=== PATIENT | male | born 1950 | race Caucasian/White ===

== ENCOUNTER → 2016-08-21 | Outpatient (CLI) | payer MEDICARE, OTHER ==
[~2016-08-21] MED LIST: AMLODIPINE-BEN1 EAC4 PO; ASA CHILDREN'S81 MG PO; BACITRACIN15 G1 TP; BETADINE30 ML TP; COLACE-DPS100 MG PO; COREG3.125 MG PO; ECOTRIN81 MG PO; LOTREL 5-20 MG1 EACH PO; MEDROL DOSEP4 MG/TAB PO; MOBIC15 MG PO; PERCOCET 10 DPS1 TAB PO; PERCOCET 5 DPS1 TAB PO; TYLENOL DPS325 MG PO; VALIUM-DPS5 MG PO; ZOCOR DPS20 MG PO
== END | disposition home or self-care (01) ==
LOC: PTH.S 07:43
DX: Z01.818 Encounter for other preprocedural examination (principal)

== ENCOUNTER 2016-08-26 07:48 | Inpatient (IN) | payer MEDICARE, OTHER ==
[~2016-08-26] VITALS: Ht 185.4 cm; Wt 93.4 kg
--- NOTE | ~2016-08-26 | DS ---
ADMIT: 08/28/2016 RM/LOC: 522 [facility] MR#: [id number] [facility]#: [id number] 2620 [facility] [address] [place] [id number] LEAH GARCIA [address] [place] [address] Discharge Summary SEX: M AGE: 66 : 1950 ADMISSION DATE: 08/28/2016 DISCHARGE DATE: 08/30/2016 SERVICE: Neurosurgery. REASON FOR ADMISSION: 1. Lumbar disc herniation with radiculopathy. 2. Numbness. 3. Lumbar stenosis with neurogenic claudication. PROCEDURES: Lumbar 2 through 5 laminectomy. HOSPITAL COURSE: Mr. Garcia tolerated his procedure well. Postoperatively, he was taken to the med/surg floor for monitoring and care. Postop day #1 he was awake and alert. He was afebrile, his vital signs were stable. He was moving all extremities x4 with 5/5 strength. His dressing was clean, dry, and intact. His ON-Q was patent. His SABINE drain was patent with serosanguineous drainage. He worked with physical therapy and occupational therapy and tolerated this quite well. Postop day #2, he was awake and alert. He was afebrile, his vital signs were stable. He was moving all extremities x4. He was complaining of increased back pain. His incision was clean, dry, and intact. His SABINE drain was patent with serosanguineous drainage and was discontinued without difficulty. His ON-Q was patent and was discontinued without difficulty as well. His Percocet was increased. He was ambulating, urinating, and defecating per his norm and was requesting discharge home. Later that morning he did complain of a little bit of headache that did improve a little bit when he was getting back. There was no cerebrospinal fluid leak during surgery and no dural damaged. Therefore, he was dismissed per his request. DISCHARGE CONDITION: Good. DISCHARGE MEDICATIONS: 1. Colace 100 mg p.o. b.i.d. 2. Bacitracin to his incision q.p.m. 3. Tylenol 650 mg q.4 hours p.r.n. 4. Valium 5-10 mg p.o. q.8 hours p.r.n. 5. Carvedilol 3.125 mg at bedtime. 6. Amlodipine benazepril 5/20 at bedtime. 7. Simvastatin 20 mg at bedtime. 8. Meloxicam 50 mg at bedtime. 9. An 81 mg aspirin at bedtime, may restart on 08/31/2016. 10.Percocet 10/325, 1-2 p.o. q.4 hours p.r.n. ADMIT: 08/28/2016 RM/LOC: 522 [facility] MR#: [id number] [address] [address] LEAH GARCIA [address] [place] [address] Discharge Summary SEX: M AGE: 66 : 1950 DISCHARGE INSTRUCTIONS: Per Dr. Agarwal, he can have a regular diet. He may shower, he should not take any tub baths, he should pat his incision dry. He should not lift anything greater than 15 pounds[address] He should not drive until he is seen in clinic. He will call with any questions or concerns including neurological worsening, signs or symptoms of infection, or any other issues. FOLLOWUP: He will follow up in clinic with Carmita in 2 weeks. DISPOSITION: He was discharged home. Total [id number] time for the discharge planning and care coordination was 30 minutes. Carmita Valero APRN / Willian Agarwal MD / nilda JOB #: [id number] CC: Willian Agarwal MD, Attending Physician Errol Portillo MD, Family Physician
--- NOTE | 2016-08-31 08:43 | OR ---
ADMIT: 08/28/2016 RM/LOC: 522 [facility] MR#: [id number] [address] [address] LEAH GARCIA [address] [place] [address] Operative/Delivery Room Report SEX: M AGE: 66 : 1950 SURGERY DATE: 08/28/2016 SURGEON: Willian Agarwal MD RADIO SURVEY WORKER: Ms. Carmita Valero APRN. PREOPERATIVE DIAGNOSES: Lumbar radiculopathy and neurogenic claudication with leg numbness from severe stenosis lumbar 2-3, 3-4, and 4-5. POSTOPERATIVE DIAGNOSES: Lumbar radiculopathy and neurogenic claudication with leg numbness from severe stenosis lumbar 2-3, 3-4, and 4-5. PROCEDURE: Wide lumbar laminectomy with medial facet undercutting as wide as necessary for decompression of thecal sac and lateral recesses lumbar 2-3, 3- 4, and 4-5 intraoperative use of fluoroscopy with physician interpretation of film. DESCRIPTION OF PROCEDURE: After gaining informed consent, the patient was taken to operative theater, placed under general endotracheal anesthesia in a supine position and turned prone on a Jean Carlos table. All pressure points purposely padded prior to performing the procedure. He was prepped and draped in sterile fashion. A time-out was utilized to ascertain the correct site and side of surgery as well as other pertinent patient historical information. Counts were obtained at the beginning and the end of the case with no change betwixt the two. Antibiotics were given within 1 hour of incision. Fluoroscope was brought into the field and lumbar 2 through 5 levels were delineated and markers were placed. The posterior skin was then incised in a longitudinal fashion. This was then taken down to the thoracodorsal fascia, which was sharply incised and subperiosteal dissection with Jung elevators were utilized over the spinous processes and lamina out over top of the facets taking caution not to interrupt the facet capsule. Once this was all prepared, self-retaining retractors were placed and then various Leksell rongeur and the high-speed drill were used to resect the spinous processes and lamina out towards the medial aspect of the facet undercutting where necessary resecting the severely overgrown ligamentum flavum, widely into the lateral recesses sounding into the neural foramen bilaterally lumbar 2-3, 3-4, and 4-5 with no sign of further compressive etiology and very widely decompressed thecal sac at the completion of the laminectomy and facet undercutting. Once this was completed, Pristine hemostasis was obtained. Attention was turned to closure. A SABINE drain was daylighted out. The thoracodorsal fascia was closed with simple interrupted 0 Vicryl. Simple inverted interrupted 2-0 Vicryl in hypodermic tissue with subcuticular 3-0 Stratafix on the skin with Steri- Strips over that. Stab incision was then fashioned in the paraspinous region this was then tunneled down tunneling catheters into the paraspinous ADMIT: 08/28/2016 RM/LOC: 522 [facility] MR#: [id number] [address] [place] [phone] [facility] [address] [address] Operative/Delivery Room Report SEX: M AGE: 66 : 1950 musculature with 5 mL of 0.5% Marcaine and then connected to ropivacaine ball. Sanjeev Marylu assisted with suction, retraction, and closure at the end of the case. COMPLICATIONS: None. ESTIMATED BLOOD LOSS: Charted. SPECIMEN: Posterior elements. DISPOSITION: Extubated and taken to postanesthesia care unit. Willian Agarwal MD/ penny PERRY: 08/28/2016 15:54:46 JOB #: [id number] CC: Willian Agarwal, Attending Physician Errol Portillo, Family Physician
[2016-08-31] MEDS ORDERED: ZOCOR DPS20 MG PO (16:45)
[2016-08-31] MEDS ORDERED: AMLODIPINE-BEN1 EAC4 PO (16:45)
[2016-08-31] MEDS ORDERED: COREG3.125 MG PO (16:45)
[2016-08-31] MEDS ORDERED: COLACE-DPS100 MG PO (16:46)
[2016-08-31] MEDS ORDERED: ECOTRIN81 MG PO (16:46)
[2016-08-31] MEDS ORDERED: MOBIC15 MG PO (16:46)
[2016-08-31] MEDS ORDERED: BETADINE30 ML TP (16:47)
[2016-08-31] MEDS ORDERED: BACITRACIN15 G1 TP (16:47)
[2016-08-31] MEDS ORDERED: VALIUM-DPS5 MG PO (16:47)
[2016-08-31] MEDS ORDERED: TYLENOL DPS325 MG PO (16:47)
[2016-08-31] MEDS ORDERED: PERCOCET 10 DPS1 TAB PO (16:47)
[2016-09-06] MEDS ORDERED: MEDROL DOSEP4 MG/TAB PO (08:31)
[2016-11-07] MEDS ORDERED: ASA CHILDREN'S81 MG PO (10:19)
[2016-11-07] MEDS ORDERED: COREG3.125 MG PO (10:20)
[2016-11-07] MEDS ORDERED: LOTREL 5-20 MG1 EACH PO (10:20)
[2016-11-07] MEDS ORDERED: ZOCOR DPS20 MG PO (10:20)
[2016-11-07] MEDS ORDERED: VALIUM-DPS5 MG PO (10:21)
[2016-11-07] MEDS ORDERED: MOBIC15 MG PO (10:21)
[2016-11-07] MEDS ORDERED: PERCOCET 5 DPS1 TAB PO (10:21)
== END 2016-08-30 15:07 | disposition home or self-care (01) | DRG 520 ==
LOC: WOR 08-28 10:41 → 5MS 08-28 16:05
PROVIDERS: ADMIT Neurological Surgery
DX: M51.16 Intervertebral disc disorders with radiculopathy, lumbar region (principal); I10 Essential (primary) hypertension; F17.210 Nicotine dependence, cigarettes, uncomplicated; I25.2 Old myocardial infarction; I25.10 Atherosclerotic heart disease of native coronary artery without angina pectoris; Z79.82 Long term (current) use of aspirin; Z82.49 Family history of ischemic heart disease and other diseases of the circulatory system; Z95.1 Presence of aortocoronary bypass graft

== ENCOUNTER 2016-09-03 15:54 | Observation (INO) | payer MEDICARE, OTHER ==
[~2016-09-03] VITALS: Ht 185.4 cm; Wt 88.2 kg
[~2016-09-03 15:54] MED LIST changes: -ASA CHILDREN'S81 MG PO; -LOTREL 5-20 MG1 EACH PO; -MEDROL DOSEP4 MG/TAB PO; -PERCOCET 5 DPS1 TAB PO
--- NOTE | 2016-09-04 10:16 | HP ---
ADMIT: 09/03/2016 RM/LOC: 519 [facility] MR#: [id number] [facility]#: [id number] [address] [place] [address] [place], [place] [address] LEAH GARCIA [address] [place] [address] Pre-OP History and Physical SEX: M AGE: 66 : 1950 DATE OF SERVICE: HISTORY: Mr. Garcia presents to the ER. I got in a call from his primary care doctor. Before he was discharged at the end of last week, his SABINE drain was removed, he said he really tensed up at that time and since then has had pain in his neck. He gets dizzy and he gets a headache when up. This has been going on for about a week now, and he feels like he cannot take it any longer. He presents to the ER after having seen his primary care doctor earlier today. He does not have any fevers or chills. No sweats. No signs of infection. PAST MEDICAL HISTORY: Neurogenic claudication, laminectomy on August 28, no changes to his other history as previous. Prior heart attack, hip pain, and coronary artery bypass grafting. MEDICATIONS: Omeprazole, he is also on pain and spasm medication. SOCIAL HISTORY: Nonsmoker, nondrinker. FAMILY HISTORY: No history of neurosurgical disease. REVIEW OF SYSTEMS: Complete review of systems was obtained and annotated in the history of present illness. PHYSICAL EXAMINATION: VITAL SIGNS: 148/79, 56 beats, 16 respirations, 95.6 degrees. GENERAL: He appears to be in pain. It starts in the base of his neck, it goes up to the back of his head. If he sits up for too long at a time period, he gets over top of his eyes. His wound is clean, dry, and intact. It is very felt. There has been no drainage from it per the patient. It does not look macerated, looks to be a very well-healing wound. He has some tenderness in the paraspinous musculature of the neck. NEUROLOGICAL EXAM: Mental status: He is awake, alert, although in pain. Cranial nerves II through XII are individually tested. He has a few beats of nystagmus towards the left. Deep tendon reflexes 3/4 in the upper and lower extremities with some pronounced crossing of the adductors and ankle jerk which is different than his exam, preop or postop. Motor exam: He is in a bit of pain, it is difficult to get an acceptable motor exam, but he still appears to have full motor activation of the bilateral upper and lower extremities. The deep tendon reflexes were 3/4 in the bilateral upper and lower extremities including the knees and the ankles. Sensation intact to light touch in the upper and lower extremities. Gait: Not really testable because the patient gets a headache anytime he is up. Cerebellar: He has a few beats of nystagmus to the left on extraocular motility examination. ASSESSMENT AND PLAN: Mr. Garcia is a 66-year-old gentleman who for whatever reason, either through tensing up at that time or removal of the SABINE drain, he has had headaches since then. They sound like intracranial hypotensive headaches, although I find nothing about his wound to make me ADMIT: 09/03/2016 RM/LOC: 519 [facility] MR#: [id number] [address] [place] [phone] [place] [address] Pre-OP History and Physical SEX: M AGE: 66 : 1950 think that he has a spinal fluid leak, at least not a current one. There was not one encountered intraoperatively either, and the argument against this being a CSF leak as the cause of the headache was that at the time of removal of the drainage is when this occurred, where as a postoperative spinal fluid leak would expect to be worse with active removal of fluid from the wound site rather than worsening when that was stopped. These could certainly be meningeal irritation signs or chemical meningitis. He says he is really tensed up at the time of the removal of the drain and felt a lot of pain and tension in his neck, it is possible he has a disk herniation. He certainly is hyperreflexic now that was not elicited in this manner previously. He could also have some other intracranial process going on, subdural hematoma or other issues. I am going to admit him overnight. We will obtain MRI of his brain with and without contrast and MRI of his cervical spine without contrast, and we will see what those look like before making plans to go ahead and he will stay mostly flat overnight. Willian Agarwal MD/ penny JOB #: [id number] CC: Willian Agarwal, Attending Physician Willian Agarwal, Family Physician
[2016-09-06] MEDS ORDERED: MEDROL DOSEP4 MG/TAB PO (08:31)
--- NOTE | 2016-09-09 15:34 | ER ---
ADMIT: 09/03/2016 RM/LOC: 519 [facility] MR#: [id number] 2620 [facility] [address] [place] [address] LEAH GARCIA [address] [place] [address] Emergency Room Report SEX: M AGE: 66 : 1950 DATE: 09/03/2016 HISTORY OF PRESENT ILLNESS: The patient is a 66-year-old, who complains of headache. Every time he sits up, he gets worse headache. It has been going like this for 4 days now. He has been dizzy as well. He has had recently surgery on his back and laminectomy on L5-S1 and that was on 08/28/2016. He denies any nausea or vomiting, but he says he is lightheaded and movement makes his pain worse and he says that with lying flat he feels much better. Neurological exam is negative. PAST MEDICAL HISTORY: Lumbar stenosis with neurogenic calcifications and radiculopathy. Back surgery and laminectomy on 08/28. ALLERGIES: TO OMEPRAZOLE. MEDICATIONS: See T-sheet. PHYSICAL EXAMINATION: VITAL SIGNS: Blood pressure 148/79 with a heart rate of 86, respirations 16, and temp is 95.6. GENERAL: Somnolent male, aware of his surroundings, mildly anxious. at bedside. HEENT: No facial swelling. NECK: Supple. No meningismus or stiff neck. No carotid bruit. Respirations, no distress. CVS: Regular in rate and rhythm. ABDOMEN: Nontender. SKIN: Good color and turgor. NEURO: Oriented x4. Alert. Mood and affect are appropriate. Cranial nerves II through XII are normal. IMAGING AND LABORATORY DATA: X-ray of L-spine disc disease, degenerative L5- S1, stable postoperative changes. No labs were done. Dr. Willian Agarwal was contacted, he will be admitting the patient. DIAGNOSIS: Headache, post laminectomy and lightheadedness. He will be admitted for MRI in the morning. The patient is from out of town and unable to sit up. Instructions given. aware of admission, awaiting placement. MANOJ Gomes / Manfred Mason MD / penny JOB #: [id number] CC: Willian Agarwal MD, Attending Physician Willian Agarwal MD, Family Physician
[2016-11-07] MEDS ORDERED: ASA CHILDREN'S81 MG PO (10:19)
[2016-11-07] MEDS ORDERED: COREG3.125 MG PO (10:20)
[2016-11-07] MEDS ORDERED: ZOCOR DPS20 MG PO (10:20)
[2016-11-07] MEDS ORDERED: LOTREL 5-20 MG1 EACH PO (10:20)
[2016-11-07] MEDS ORDERED: VALIUM-DPS5 MG PO (10:21)
[2016-11-07] MEDS ORDERED: MOBIC15 MG PO (10:21)
[2016-11-07] MEDS ORDERED: PERCOCET 5 DPS1 TAB PO (10:21)
== END 2016-09-04 18:14 | disposition home or self-care (01) ==
LOC: ER 15:54 → 5MS 20:00
PROVIDERS: ADMIT Neurological Surgery
DX: M50.322 Other cervical disc degeneration at C5-C6 level (principal); M50.323 Other cervical disc degeneration at C6-C7 level; M50.222 Other cervical disc displacement at C5-C6 level; Z98.890 Other specified postprocedural states; Z88.8 Allergy status to other drugs, medicaments and biological substances

== ENCOUNTER 2016-11-02 08:48 | Inpatient (IN) | payer MEDICARE, OTHER ==
[~2016-11-02] VITALS: Ht 185.4 cm; Wt 86.0 kg
[~2016-11-02 08:48] MED LIST changes: +MEDROL DOSEP4 MG/TAB PO
--- NOTE | 2016-11-04 07:15 | OR ---
ADMIT: 11/02/2016 RM/LOC: 312 [facility] MR#: [id number] [address] [address] LEAH GARCIA [address] [place] [address] Operative/Delivery Room Report SEX: M AGE: 66 : 1950 SURGERY DATE: 11/02/2016 SURGEON: Willian Agarwal MD [employer] CLAIMS ADJUSTER: None. PREOPERATIVE DIAGNOSIS: Pseudomeningocele. POSTOPERATIVE DIAGNOSIS: Pseudomeningocele. PROCEDURE: Exploration of pseudomeningocele and repair of CSF leak with placement of lumbar drain. DESCRIPTION OF PROCEDURE: After gaining informed consent, the patient was taken to the operative theater, placed under general endotracheal anesthesia in supine position. A time-out was utilized to ascertain the correct site and side of surgery as well as other pertinent patient historical information. Counts were obtained at the beginning and end of the case with no change betwixt the two. Antibiotics were given within 1 hour of incision. The wound was opened and clear fluid was obtained. The area was walled off, consistent with the pseudomeningocele. I dissected down through this area to the dura, it was a very small dural bleb near the neuroforamen on the left at approximately L4-5. I took some of the paraspinous musculature and then utilizing 4-0 Nurolon, oversewed this area. After sewing this muscular patch over top of the small durotomy, the patient was placed under Valsalva with no further sign of CSF leak. DuraGen and Tisseel were then placed. The membrane was then scarified incising this into bleeding tissue and then in three separate layers, the area was closed with simple running 0 Ethibond. Just prior to doing this, the Touhy needle was used to access the thecal sac and S1- S2 level and then under fluoroscopic visualization, the lumbar drain was then passed cephalad into the dura. CSF was visualized. This was then daylighted out through the Touhy needle out of the skin and sewn in place. After the ADMIT: 11/02/2016 RM/LOC: 312 [facility] MR#: [id number] [address] [address] [place] [address] Operative/Delivery Room Report SEX: M AGE: 66 : 1950 Ethibond was completed, then simple inverted interrupted 2-0 Vicryl was used in the hypodermic tissue, and running vertical mattress 3-0 nylon was used on the skin. COMPLICATIONS: None. ESTIMATED BLOOD LOSS: Charted. SPECIMEN: None. DISPOSITION: Extubated and taken to postanesthesia care unit moving all 4 extremities. Willian Agarwal MD/ penny JOB #: [id number] CC: Willian Agarwal, Attending Physician Errol Portillo, Family Physician
[2016-11-07] MEDS ORDERED: ASA CHILDREN'S81 MG PO (10:19)
[2016-11-07] MEDS ORDERED: LOTREL 5-20 MG1 EACH PO (10:20)
[2016-11-07] MEDS ORDERED: COREG3.125 MG PO (10:20)
[2016-11-07] MEDS ORDERED: ZOCOR DPS20 MG PO (10:20)
[2016-11-07] MEDS ORDERED: PERCOCET 5 DPS1 TAB PO (10:21)
[2016-11-07] MEDS ORDERED: MOBIC15 MG PO (10:21)
[2016-11-07] MEDS ORDERED: VALIUM-DPS5 MG PO (10:21)
--- NOTE | 2016-12-02 12:15 | DS ---
ADMIT: 11/02/2016 RM/LOC: 312 [facility] MR#: [id number] [facility]#: [id number] 2620 [facility] [address] [place], [place] [address] LEAH GARCIA [address] [place] [address] General Discharge Summary SEX: M AGE: 66 : 1950 ADMISSION DATE: 11/02/2016 DISCHARGE DATE: 11/06/2016 SERVICE: Neurosurgery. REASON FOR ADMISSION: 1. Fluid collection at site. 2. Pseudomeningocele. 3. Status post lumbar laminectomy. PROCEDURE: 1. Surgery exploration of pseudomeningocele. 2. Lumbar drain placement. HOSPITAL COURSE: Mr. Garcia tolerated his procedure well. Postoperatively, he was admitted to the floor with routine Med/Surg orders. He did have a lumbar drain patent. It was set to drain at 15 mL an hour. He was kept flat with log roll. Postop day #1, he was awake and alert. His vital signs were stable. His wound was clean, dry, and intact. His lumbar drain was intact. Postop day #2, his pain was controlled. His vital signs were stable. He was awake and alert. He was moving all extremities x4. His incision was clean, dry, and intact. His lumbar drain was intact. The head of his bed was slowly elevated by 30 degrees every 2 hours until he was up and ambulating. He did tolerate this quite well. Postop day #3, he was awake and alert. His vital signs were stable. He was moving all extremities x4. His incision was clean, dry, and intact. His lumbar drain was clamped, and there is no drainage from the incision. He did work with Physical Therapy and tolerated this quite well. Postop day #4, he was awake and alert. His vital signs were stable. He was moving all extremities x4 with 5/5 strength. His incision was clean, dry, and intact. His lumbar drain was removed and one suture was placed without difficulty. He tolerated this quite well. He was ambulating, urinating, and defecating per his norm and was requesting discharge home. DISCHARGE CONDITION: Good. MEDICATIONS: 1. Percocet 5/325, 1 to 2 p.o. q.4 hours p.r.n. 2. Valium 5 mg 1 to 2 tablets p.o. q.8 hours p.r.n. 3. Aspirin 81 mg at bedtime. 4. Amlodipine/benazepril 5/20 p.o. at bedtime. 5. Carvedilol 3.125 mg at bedtime. 6. Simvastatin 20 mg at bedtime. 7. Meloxicam 15 mg at bedtime. ADMIT: 11/02/2016 RM/LOC: 312 [facility] MR#: [id number] [address] [address] [place] [address] General Discharge Summary SEX: M AGE: 66 : 1950 DISCHARGE INSTRUCTIONS: Per Dr. Agarwal. He can have a regular diet. He may shower, he should not take any tub baths, he should pat his incision dry. He will call with any questions or concerns including neurological worsening, signs or symptoms of infection, or any other issues. FOLLOWUP: He will follow up in clinic in 2 weeks. DISPOSITION: He was discharged home. Total [id number] time for the discharge planning and care coordination was 30 minutes. Carmita Valero APRN / Willian Agarwal MD / penny JOB #: [id number] CC: Willian Agarwal MD, Attending Physician Errol Portillo MD, Family Physician
== END 2016-11-06 08:30 | disposition home or self-care (01) | DRG 30 ==
LOC: 3ICU 09:54 → WOR 09:54 → 3ICU 16:16
PROVIDERS: ADMIT Neurological Surgery
PROC: 00UT07Z Supplement Spinal Meninges with Autologous Tissue Substitute, Open Approach (ICD-10-PCS; principal; 2016-11-02)
DX: G97.82 Other postprocedural complications and disorders of nervous system (principal); G96.19 Other disorders of meninges, not elsewhere classified; I10 Essential (primary) hypertension; I25.2 Old myocardial infarction; F17.200 Nicotine dependence, unspecified, uncomplicated; I25.10 Atherosclerotic heart disease of native coronary artery without angina pectoris; Z95.1 Presence of aortocoronary bypass graft; Z82.49 Family history of ischemic heart disease and other diseases of the circulatory system; Z79.82 Long term (current) use of aspirin